=== PATIENT | female | born 1965 | race Caucasian/White ===

== ENCOUNTER 2020-12-27 01:52 | Day surgery (SDC) | payer OTHER, SELFPAY ==
[2020-12-16 08:49] VITALS: BMI 27.4
--- NOTE | 2020-12-27 08:01 | WPDANESEPPF ---
Anes - Initial Pre Proc Eval Procedure: Operation Date: 12/27/20 09:15 Proposed Procedures p Screening Colonoscopy - John Pete MD Date/Time: 12/27/20 08:01 Surgeon: John Pete MD Pre Op Diagnosis: hx of colon polyps Patient Data Age: 55 Gender: F Height: 1.68 m Weight: 77.2 kg Allergies Allergy/AdvReac Type Severity Reaction Status Date / Time Penicillins Allergy Rash Verified 12/27/20 08:18 acetaminophen [From Vicodin] AdvReac Nausea Verified 12/27/20 08:18 hydrocodone [From Vicodin] AdvReac Nausea Verified 12/27/20 08:18 Home Medications Medication Instructions Recorded Confirmed Type aspirin 81 mg tablet,delayed 81 mg PO DAILY 11/24/20 12/16/20 History release azathioprine 50 mg tablet 50 mg PO DAILY 11/24/20 12/16/20 History cholecalciferol (vitamin D3) 50 50 mcg PO DAILY 11/24/20 12/16/20 History mcg (2,000 unit) capsule clindamycin HCl 150 mg capsule 150 mg PO Q6H 11/24/20 12/16/20 History fluticasone propionate 50 1 spray INTRANASAL DAILY 11/24/20 12/16/20 History mcg/actuation nasal spray,suspension hydrochlorothiazide 12.5 mg capsule 12.5 mg PO DAILY 11/24/20 12/16/20 History lisinopril 5 mg tablet 5 mg PO DAILY 11/24/20 12/16/20 History omeprazole 20 mg capsule,delayed 20 mg PO DAILY 11/24/20 12/16/20 History release propranolol 10 mg tablet 10 mg PO Q12H 11/24/20 12/16/20 History Patient hx anesthesia problems: none Family hx anesthesia problems: none FOR[facility] Past Medical History Medical History (Updated 12/27/20 @ 08:02 by Jigar Mcgee MD) Arthritis Chronic GERD HTN (hypertension) Overweight (BMI 25.0-29.9) Pulmonary embolism Surgical History Surgical History (Updated 12/27/20 @ 08:02 by Jigar Mcgee MD) H/O pulmonic valve replacement Social History Social History (Updated 11/24/20 @ 14:16 by Geovanna Sepulveda CMA) Smoking status: Never smoker Alcohol intake: current Alcohol use details: socially Substance use: never Substance use type: does not use Living arrangements: alone Spiritual care concerns: No Anes - Eval Final PreProcedure Day of Procedure 12/27/20 08:01 Patient weight: overweight Heart: regular rate and rhythm Lungs: clear to auscultation and normal air movement Airway: Mallampati scale class II Neurological: alert and oriented Last oral intake: >/= 8 hours ASA classification: III Emergent: no Anesthetic plan: proceed Anesthesia type and monitoring: general GIVS Informed Consent: The patient's anesthetic plan and its attendant risks and benefits were discussed with the patient/family/POA. Questions were solicited and answers provided to the satisfaction of the patient/family/POA.
[2020-12-27 08:20] VITALS: BP 140/76; PULSE 67; RESP 20; TEMP 36.2; O2SAT 98; BMI 26.8
[2020-12-27] MEDS: LACTATED RINGERS 1,000 ML 150 ML IV CONT (08:32)
--- NOTE | 2020-12-27 08:52 | WPDGICN ---
Assessment and Plan Assessment and plan (1) History of colon polyps: Code(s): Z86.010 - Personal history of colonic polyps Status: Acute Assessment and Plan: Patient has a history of adenomatous colon polyps removed from the colon 2017. Plan is for surveillance colonoscopy now and consider this at intervals in the future. Further recommendations will be given after colonoscopy. (2) Autoimmune hepatitis: Code(s): K75.4 - Autoimmune hepatitis Status: Acute Assessment and Plan: Patient has a history of autoimmune hepatitis. Appears to be in remission. Currently on Imuran 50mg p.o. daily. Will continue this for now. Suggest follow-up LFTs at least annually. Follow-up my office in 1 year. GI Consult Note Consult date/time: 12/27/20 08:52 HPI: Clarisa Piña is a 55 year old female Presents for surveillance colonoscopy. Patient has a prior history of colon polyps. Most recent colonoscopy by Dr. Bennett in 2018. Patient reports that her current weight appetite bowel movements are normal. She denies abdominal pain. She has had no bleeding. Past medical history is significant for autoimmune hepatitis. This is currently in remission. LFTs and NATALIYA have returned to normal. Patient currently on Imuran. Review of Systems Review of Systems: All systems reviewed & are unremarkable except as noted in HPI and below PMFSH Past Medical History Medical History (Updated 12/27/20 @ 08:02 by Jigar Mcgee MD) Arthritis Chronic GERD HTN (hypertension) Overweight (BMI 25.0-29.9) Pulmonary embolism Surgical History Surgical History (Updated 12/27/20 @ 08:02 by Jigar Mcgee MD) H/O pulmonic valve replacement Social History Social History (Updated 11/24/20 @ 14:16 by Geovanna Sepulveda CMA) Smoking status: Never smoker Alcohol intake: current Alcohol use details: socially Substance use: never Substance use type: does not use Living arrangements: alone Spiritual care concerns: No Meds Home Medications and Allergies Home Medications Medication Instructions Recorded Confirmed Type aspirin 81 mg tablet,delayed 81 mg PO DAILY 11/24/20 12/16/20 History release azathioprine 50 mg tablet 50 mg PO DAILY 11/24/20 12/16/20 History cholecalciferol (vitamin D3) 50 50 mcg PO DAILY 11/24/20 12/16/20 History mcg (2,000 unit) capsule clindamycin HCl 150 mg capsule 150 mg PO Q6H 11/24/20 12/16/20 History fluticasone propionate 50 1 spray INTRANASAL DAILY 11/24/20 12/16/20 History mcg/actuation nasal spray,suspension hydrochlorothiazide 12.5 mg capsule 12.5 mg PO DAILY 11/24/20 12/16/20 History lisinopril 5 mg tablet 5 mg PO DAILY 11/24/20 12/16/20 History omeprazole 20 mg capsule,delayed 20 mg PO DAILY 11/24/20 12/16/20 History release propranolol 10 mg tablet 10 mg PO Q12H 11/24/20 12/16/20 History Allergies Allergy/AdvReac Type Severity Reaction Status Date / Time Penicillins Allergy Rash Verified 12/27/20 08:18 acetaminophen [From Vicodin] AdvReac Nausea Verified 12/27/20 08:18 hydrocodone [From Vicodin] AdvReac Nausea Verified 12/27/20 08:18 Vital Signs Vital Signs - 24 hr 12/27/20 08:20 Temperature 97.1 F L Pulse Rate 67 Respiratory Rate 20 Blood Pressure 140/76 Pulse Oximetry 98 Exam Narrative: Physical exam reveals patient to be alert. Vital signs stable. HEENT exam is unremarkable. Patient is anicteric. Lungs are clear to auscultation and percussion. Heart is without murmur or extra sounds. Abdominal exam bowel sounds are present soft nontender with no organomegaly. Digital external rectal exam is normal.
[2020-12-27 09:23] VITALS: BP 112/62; PULSE 75; RESP 20; O2SAT 96
[2020-12-27 09:32] VITALS: BP 121/74; PULSE 71; RESP 20; O2SAT 95
[2020-12-27 09:39] VITALS: BP 134/75; PULSE 62; RESP 20; O2SAT 100
== END 2020-12-27 09:47 | disposition home or self-care (01) ==
PROVIDERS: PCP Pediatrics; Visit Provider Internal Medicine Gastroenterology
PROC: 0DJD8ZZ Inspection of Lower Intestinal Tract, Via Natural or Artificial Opening Endoscopic (ICD-10-PCS; CPT 45378; principal; 2020-12-27 09:15)
DX: Z12.11 Encounter for screening for malignant neoplasm of colon (principal); K64.8 Other hemorrhoids; K63.5 Polyp of colon; K75.4 Autoimmune hepatitis; M19.90 Unspecified osteoarthritis, unspecified site; K21.9 Gastro-esophageal reflux disease without esophagitis; I10 Essential (primary) hypertension; Z86.711 Personal history of pulmonary embolism; Z95.2 Presence of prosthetic heart valve; Z79.82 Long term (current) use of aspirin
CPT/HCPCS: 45385; 88305; J2704; J3370; J7120

== ENCOUNTER → 2022-02-25 07:51 | Outpatient (CLI) | payer OTHER, SELFPAY ==
--- NOTE | ~2022-02-25 | XR_ITS ---
EXAMINATION: XR hip LT min 2V DATE: 02/25/2022 08:10 INDICATION: Left hip pain. TECHNIQUE: 2 views of left hip were obtained. COMPARISON: None. FINDINGS: Bone alignment is normal. No fracture. There is moderate left hip osteoarthritis. IMPRESSION: 1. Moderate left hip osteoarthritis. Reviewed, dictated and finalized at location A.
== END ==
PROVIDERS: PCP Pediatrics; Visit Provider Pediatrics
DX: M16.12 Unilateral primary osteoarthritis, left hip (principal)
CPT/HCPCS: 73502

== ENCOUNTER 2023-08-14 13:12 | Outpatient (CLI) | payer OTHER, SELFPAY ==
--- NOTE | ~2023-08-14 | US_ITS ---
US right upper quadrant INDICATION: Autoimmune hepatitis PROCEDURE: Realtime right upper abdominal ultrasound. COMPARISON: No prior studies for comparison. FINDINGS: Study is technically limited by patient body habitus. The pancreas is normal without focal mass or pancreatic ductal dilation. Liver echotexture is normal without focal mass or intrahepatic b iliary dilatation. There is normal directional flow in the portal vein. The gallbladder is normal without stones, gallbladder wall thickening or pericholecystic fluid. Comm on bile duct measures 4 mm. No sonographic Arzate's sign. IMPRESSION: 1: Unremarkable limited abdominal ultrasound. Reviewed, dictated and finalized at location A.
== END 2023-08-14 13:13 | disposition home or self-care (01) ==
PROVIDERS: PCP Pediatrics; Visit Provider Internal Medicine Gastroenterology
DX: K75.4 Autoimmune hepatitis (principal)
CPT/HCPCS: 76705

== ENCOUNTER 2023-10-22 02:02 | Day surgery (SDC) | payer OTHER, SELFPAY ==
[2023-10-04 15:30] VITALS: BMI 27.7
[2023-10-22 08:41] VITALS: BP 144/68; PULSE 65; RESP 20; TEMP 36.4; O2SAT 97
[2023-10-22] MEDS: LACTATED RINGERS 1,000 ML 150 ML IV CONT (08:51)
[2023-10-22] MEDS: VANCOMYCIN 1,250 MG/NS 250 ML 1,250 MG/250 ML BAG 166.67 MG IVPB (08:52)
--- NOTE | 2023-10-22 08:56 | WPDANESEPPF ---
Anes - Initial Pre Proc Eval Procedure: Operation Date: 10/22/23 10:00 Proposed Procedures p Colonoscopy - Tyson Guzman MD Date/Time: 10/22/23 08:56 Surgeon: Tyson Guzman MD Pre Op Diagnosis: pesonal hx. colon polyps , autoimmune hepatitis Patient Data Age: 58 Gender: F Height: 1.68 m Weight: 79.2 kg Last Vital Signs Temp 36.4 C 10/22/23 08:41 Pulse 65 10/22/23 08:41 Resp 20 10/22/23 08:41 BP 144/68 H 10/22/23 08:41 Pulse Ox 97 10/22/23 08:41 O2 Del Method Room Air 10/22/23 08:41 Allergies Allergy/AdvReac Type Severity Reaction Status Date / Time Penicillins Allergy Rash Verified 10/22/23 08:40 hydrocodone [From Vicodin] AdvReac Nausea Verified 10/22/23 08:40 Home Medications Medication Instructions Recorded Confirmed Type aspirin 81 mg tablet,delayed 81 mg PO DAILY 11/24/20 10/04/23 History release cholecalciferol (vitamin D3) 50 50 mcg PO DAILY 11/24/20 10/04/23 History mcg (2,000 unit) capsule fluticasone propionate 50 1 spray intranasal DAILY 11/24/20 10/04/23 History mcg/actuation nasal spray,suspension hydrochlorothiazide 12.5 mg capsule 12.5 mg PO DAILY 11/24/20 10/04/23 History lisinopril 5 mg tablet 5 mg PO DAILY 11/24/20 10/04/23 History omeprazole 20 mg capsule,delayed 20 mg PO DAILY 11/24/20 10/04/23 History release ezetimibe 10 mg tablet 10 mg PO DAILY 08/02/23 10/04/23 History trazodone 50 mg tablet 50 mg PO QHS 08/02/23 10/04/23 History azathioprine 50 mg tablet See Rx Instructions .Route 08/27/23 10/04/23 Rx .COMPLEX #90 tabs carboxymethylcellulose sodium 1 % 1 drp EACH EYE BID 10/04/23 10/04/23 History eye liquid gel drops Patient hx anesthesia problems: none Family hx anesthesia problems: none Results Review: All pre-operative results and documents have been reviewed as part of the pre-operative evaluation. PMFSH Past Medical History Medical History Arthritis Chronic GERD HTN (hypertension) Overweight (BMI 25.0-29.9) Pulmonary embolism Surgical History Surgical History H/O pulmonic valve replacement Social History Social History Smoking status: Never smoker Alcohol intake: never Alcohol use details: socially Substance use: never Substance use type: does not use Living arrangements: alone Spiritual care concerns: No Anes - Eval Final PreProcedure Day of Procedure 10/22/23 08:56 Patient weight: overweight Heart: regular rate and rhythm Lungs: clear to auscultation Airway: Mallampati scale class II Neurological: alert and oriented Last oral intake: >/= 8 hours ASA classification: III Emergent: no Anesthetic plan: proceed Anesthesia type and monitoring: general GIVS and standard monitoring Results Review: All pre-operative results and documents have been reviewed as part of the pre-operative evaluation. Informed Consent: The patient's anesthetic plan and its attendant risks and benefits were discussed with the patient/family/POA. Questions were solicited and answers provided to the satisfaction of the patient/family/POA.
--- NOTE | 2023-10-22 09:17 | PM.HPGS ---
History of Present Illness History of Present Illness Consent: Risks, benefits, and alternatives have been discussed and questions answered. Patient agrees to proceed with procedure. Chief complaint: pesonal hx. colon polyps Narrative: Clarisa Piña is a 58 year old female with colon polyp in 2020 Review of Systems Review of Systems: All systems reviewed & are unremarkable except as noted in HPI and below PMFSH Past Medical History Medical History Arthritis Chronic GERD HTN (hypertension) Overweight (BMI 25.0-29.9) Pulmonary embolism Surgical History Surgical History H/O pulmonic valve replacement Social History Social History Smoking status: Never smoker Alcohol intake: never Alcohol use details: socially Substance use: never Substance use type: does not use Living arrangements: alone Spiritual care concerns: No Meds Home Medications and Allergies Home Medications Medication Instructions Recorded Confirmed Type aspirin 81 mg tablet,delayed 81 mg PO DAILY 11/24/20 10/04/23 History release cholecalciferol (vitamin D3) 50 50 mcg PO DAILY 11/24/20 10/04/23 History mcg (2,000 unit) capsule fluticasone propionate 50 1 spray intranasal DAILY 11/24/20 10/04/23 History mcg/actuation nasal spray,suspension hydrochlorothiazide 12.5 mg capsule 12.5 mg PO DAILY 11/24/20 10/04/23 History lisinopril 5 mg tablet 5 mg PO DAILY 11/24/20 10/04/23 History omeprazole 20 mg capsule,delayed 20 mg PO DAILY 11/24/20 10/04/23 History release ezetimibe 10 mg tablet 10 mg PO DAILY 08/02/23 10/04/23 History trazodone 50 mg tablet 50 mg PO QHS 08/02/23 10/04/23 History azathioprine 50 mg tablet See Rx Instructions .Route 08/27/23 10/04/23 Rx .COMPLEX #90 tabs carboxymethylcellulose sodium 1 % 1 drp EACH EYE BID 10/04/23 10/04/23 History eye liquid gel drops Allergies Allergy/AdvReac Type Severity Reaction Status Date / Time Penicillins Allergy Rash Verified 10/22/23 08:40 hydrocodone [From Vicodin] AdvReac Nausea Verified 10/22/23 08:40 Vital Signs Vital Signs - 24 hr 10/22/23 08:41 Temperature 97.6 F Pulse Rate 65 Respiratory Rate 20 Blood Pressure 144/68 H Pulse Oximetry 97 Oxygen Delivery Room Air Exam Const: General: comfortable and no acute distress HENMT: Face/Nose/Sinus: Normal nares present Eyes: General: appearance normal, both eyes and all related structures Neck: Neck: no JVD Resp: Auscultation: clear to auscultation bilaterally Cardio: Rate: regular rate Rhythm: regular rhythm GI: Inspection: non-distended GI Palp: Yes Soft to palpation Skin: General skin exam: normal color Neuro: General: gait normal Speech: normal speech Extrem: General: normal to inspection Psych: Mental Status: mental status grossly normal Assessment and Plan Assessment and plan (1) History of colon polyps: Code(s): Z86.010 - Personal history of colonic polyps Status: Acute Assessment and Plan: colonoscopy
[2023-10-22 09:56] VITALS: BP 104/62; PULSE 63; RESP 20; O2SAT 99
[2023-10-22 10:06] VITALS: BP 121/71; PULSE 65; RESP 21; O2SAT 100
[2023-10-22 10:16] VITALS: BP 130/71; PULSE 62; RESP 21; O2SAT 100
== END 2023-10-22 10:25 | disposition home or self-care (01) ==
PROVIDERS: PCP Pediatrics; Visit Provider Internal Medicine Gastroenterology
PROC: 0DJD8ZZ Inspection of Lower Intestinal Tract, Via Natural or Artificial Opening Endoscopic (ICD-10-PCS; CPT 45378; principal; 2023-10-22 10:00)
DX: Z12.11 Encounter for screening for malignant neoplasm of colon (principal); K57.30 Diverticulosis of large intestine without perforation or abscess without bleeding; K63.5 Polyp of colon; K64.8 Other hemorrhoids; K75.4 Autoimmune hepatitis; I10 Essential (primary) hypertension; K21.9 Gastro-esophageal reflux disease without esophagitis; Z86.711 Personal history of pulmonary embolism; Z79.82 Long term (current) use of aspirin; Z95.4 Presence of other heart-valve replacement
CPT/HCPCS: 45381; 45385; 88305; J1596; J2001; J2704; J3370; J7120